=== PATIENT | female | born 1985 | race Asian ===

== ENCOUNTER 2017-03-25 05:01 | Inpatient (IN) | payer OTHER ==
[~2017-03-25] VITALS: Ht 167.6 cm; Wt 84.4 kg
[2017-03-25] MEDS ORDERED: AMPICILLIN 2,000 MG in NACL 0.9% MINI-BAG PLUS 100 ML IV SCH (05:40)
[2017-03-25] MEDS ORDERED: CITRIC ACID/SODIUM CITRATE 30 ML UDC PO ONE (05:40)
[2017-03-25 05:50] VITALS: BP 122/82
[2017-03-25] MEDS: LACTATED RINGERS 1,000 ML IV SCH ×2 (05:58→06:58)
[2017-03-25 06:35] LABS: BASOPHILS # (AUTO) 0.1 K/uL (0.00-0.22); BASOPHILS % (AUTO) 1.3 % (0.0-2.0); EOSINOPHILS # (AUTO) 0.2 K/uL (0-0.4); EOSINOPHILS % (AUTO) 2.6 % (0.0-4.0); HEMATOCRIT 39.7 % (36-48); HEMOGLOBIN 13.5 g/dL (12.0-16.0); LYMPHOCYTES # (AUTO) 1.6 K/uL (2.5-16.5); MEAN CORPUSCULAR HEMOGLOBIN 31 pg (27-31); MEAN CORPUSCULAR HGB CONC 34 g/dL (33-37); MEAN CORPUSCULAR VOLUME 90 fL (80-94); MONOCYTES # (AUTO) 0.6 K/uL (0.8-1.0); MONOCYTES % (AUTO) 8.7 % (1.7-9.3); NEUTROPHILS # (AUTO) 4.7 K/uL (1.8-7.7); NEUTROPHILS % (AUTO) 65.4 % (42.2-75.2); PLATELET COUNT (AUTO) 150 K/uL (140-450); RED BLOOD CELL COUNT(AUTO) 4.42 MIL/uL (4.20-5.40); RED CELL DISTRIBUTION WIDTH 12.6 % (11.6-13.7); WHITE BLOOD COUNT (AUTO) 7.2 K/uL (4.8-10.8)
[2017-03-25] MEDS ORDERED: ceFAZolin 1,000 MG VIAL ONE (07:01)
[2017-03-25] MEDS ORDERED: CITRIC ACID/SODIUM CITRATE 30 ML UDC ONE (07:01)
[2017-03-25 07:28] LABS: ANION GAP 16.3 (8-16); CARBON DIOXIDE 23.3 mmol/L (21-32); CREATININE 0.5 mg/dL (0.6-1.3); POTASSIUM 3.6 mmol/L (3.5-5.1)
[2017-03-25] MEDS ORDERED: OXYTOCIN 10 UNITS/ML VIAL ONE ×2 (07:32→19:02)
[2017-03-25] MEDS ORDERED: ONDANSETRON 4 MG/2 ML VIAL IVP ONE (07:33)
[2017-03-25] MEDS ORDERED: BUPIVACAINE-MPF 0.75% 10 ML VIAL INJ ONE (07:33)
[2017-03-25] MEDS ORDERED: TRIAMCINOLONE 40 MG/ML 5ML VIAL ONE (07:33)
[2017-03-25 07:34] LABS: ALBUMIN 2.4 g/dL (3.4-5.0); TOTAL BILIRUBIN 0.5 mg/dL (0.0-1.0)
[2017-03-25 07:37] LABS: APPEARANCE,URINE HAZY (CLEAR); BILIRUBIN,URINE NEGATIVE (NEGATIVE); BLOOD, URINE NEGATIVE (NEGATIVE); LEUKOCYTE ESTERASE ,URINE NEGATIVE (NEGATIVE); NITRITE, URINE NEGATIVE (NEGATIVE); UGLUCOSE NEGATIVE (NEGATIVE)
[2017-03-25] MEDS ORDERED: diphenhydrAMINE 50 MG/ML VIAL ONE (07:41)
[2017-03-25] MEDS ORDERED: MORPHINE PRES FREE 10 MG/10 ML AMP IV ONE (07:47)
[2017-03-25 07:56] LABS: COLOR,URINE YELLOW (YELLOW)
[2017-03-25] MEDS ORDERED: OXYTOCIN 20 UNITS in LACTATED RINGERS 1,000 ML IV SCH (07:56)
[2017-03-25] MEDS ORDERED: KETOROLAC 30 MG/ML VIAL IVP PRN (08:00)
[2017-03-25] MEDS ORDERED: ONDANSETRON 4 MG/2 ML VIAL IVP PRN (08:00)
[2017-03-25] MEDS ORDERED: NALOXONE 0.4 MG/ML VIAL IVP PRN ×2 (08:00)
[2017-03-25] MEDS ORDERED: diphenhydrAMINE 50 MG/ML VIAL IVP PRN (08:00)
[2017-03-25] MEDS ORDERED: OXYTOCIN 10 UNITS in LACTATED RINGERS 1,000 ML IV SCH (08:12)
[2017-03-25] MEDS ORDERED: oxyCODONE/APAP 5/325 MG 1 TAB TAB PO PRN ×3 (08:15)
[2017-03-25] MEDS ORDERED: MEASLES, MUMPS, AND RUBELLA 1 VIAL SQVAC PRN (08:15)
[2017-03-25] MEDS ORDERED: TEMAZEPAM 15 MG CAP PO PRN ×2 (08:15)
[2017-03-25] MEDS ORDERED: TRIMETHOBENZAMIDE 200 MG/2 ML SYR IM PRN (08:15)
[2017-03-25] MEDS ORDERED: METHYLERGONOVINE 0.2 MG/ML AMP IM PRN (08:15)
[2017-03-25] MEDS ORDERED: SIMETHICONE 80 MG TAB.CHEW PO PRN ×2 (08:15)
[2017-03-25] MEDS: OXYTOCIN 20 UNITS/LR PREMIX 1,000 ML IV ONE ×2 (08:37→09:00)
[2017-03-25] MEDS ORDERED: SODIUM PHOSPHATE 118 ML ENEM RC SCH (09:00)
--- NOTE | 2017-03-25 10:29 | NUR ---
PATIENT HAS BEEN SCREENED AND CATEGORIZED LOW NUTRITION RISK. PATIENT WILL BE SEEN WITHIN 7 DAYS OF ADMISSION. 03/31/[address]
[2017-03-25] MEDS: OXYTOCIN 20 UNITS in LACTATED RINGERS 1,000 ML IV SCH (19:00)
[2017-03-25] MEDS ORDERED: DOCUSATE SOD/SENNA 50/8.6 MG 1 TAB PO SCH (21:00)
[2017-03-25] MEDS: DOCUSATE SOD/SENNA 50/8.6 MG 1 TAB PO SCH (21:00)
[2017-03-26] MEDS: OXYTOCIN 20 UNITS in LACTATED RINGERS 1,000 ML IV SCH (02:23)
[2017-03-26] MEDS: HYDROcodone/APAP 5/325 MG 1 TAB TAB PO PRN ×3 (05:12→21:47)
[2017-03-26 07:42] LABS: BASOPHILS # (AUTO) 0.1 K/uL (0.00-0.22); EOSINOPHILS # (AUTO) 0.1 K/uL (0-0.4); EOSINOPHILS % (AUTO) 1.6 % (0.0-4.0); HEMATOCRIT 35.7 % (36-48); HEMOGLOBIN 11.8 g/dL (12.0-16.0); LYMPHOCYTES % (AUTO) 13.3 % (20.5-51.1); MEAN CORPUSCULAR HEMOGLOBIN 30 pg (27-31); MEAN CORPUSCULAR HGB CONC 33 g/dL (33-37); MEAN CORPUSCULAR VOLUME 91 fL (80-94); MONOCYTES # (AUTO) 0.6 K/uL (0.8-1.0); MONOCYTES % (AUTO) 8.4 % (1.7-9.3); NEUTROPHILS # (AUTO) 5.4 K/uL (1.8-7.7); NEUTROPHILS % (AUTO) 75.7 % (42.2-75.2); PLATELET COUNT (AUTO) 142 K/uL (140-450); RED BLOOD CELL COUNT(AUTO) 3.93 MIL/uL (4.20-5.40); RED CELL DISTRIBUTION WIDTH 12.9 % (11.6-13.7); WHITE BLOOD COUNT (AUTO) 7.2 K/uL (4.8-10.8)
[2017-03-26] MEDS: IBUPROFEN 800 MG TAB PO PRN (09:24)
[2017-03-26] MEDS: DOCUSATE SOD/SENNA 50/8.6 MG 1 TAB PO SCH (21:47)
[2017-03-27] MEDS ORDERED: INFLUENZA VIRUS VACCINE QUAD 0.5 ML SYR IMVAC SCH (09:55)
[2017-03-27] MEDS: IBUPROFEN 800 MG TAB PO PRN (19:04)
== END 2017-03-28 12:30 | disposition home or self-care (01) | DRG 540 ==
LOC: MLD 05:01 → MFCC 09:10
PROVIDERS: ADMIT Obstetrics & Gynecology; ATTEND Obstetrics & Gynecology
PROC: 10D00Z1 Extraction of Products of Conception, Low, Open Approach (ICD-10-PCS; principal; 2017-03-25 07:30)
PROC: 3E0234Z Introduction of Serum, Toxoid and Vaccine into Muscle, Percutaneous Approach (ICD-10-PCS; 2017-03-27)
DX: O34.211 Maternal care for low transverse scar from previous cesarean delivery (principal); O99.824 Streptococcus B carrier state complicating childbirth; Z37.0 Single live birth; Z3A.39 39 weeks gestation of pregnancy; Z23 Encounter for immunization
CPT/HCPCS: 36415; 51702; 80053; 81003; 85025; 86592; 86886; 86900; 86901; 87081; 90658; 90715; J0690; J1200; J2270; J2405; J2590; J3301; J3490; J7060; J7120

== ENCOUNTER 2023-07-27 16:10 | Emergency (ER) | payer OTHER ==
[~2023-07-27] VITALS: Ht 167.6 cm; Wt 74.4 kg
[2023-07-27 16:27] VITALS: BP 106/70; PULSE 57; RESP 17; TEMP 97.3; O2SAT 99
[2023-07-27] MEDS ORDERED: DICYCLOMINE HCL LIQUID 10 MG/5 ML UDC ONE (16:58)
[2023-07-27] MEDS ORDERED: ALUMINUM HYD/MAG/SIMETHICONE 30 ML UDC ONE (16:58)
[2023-07-27 17:11] LABS: APPEARANCE,URINE CLEAR (CLEAR); BILIRUBIN,URINE NEGATIVE (NEGATIVE); BLOOD, URINE NEGATIVE (NEGATIVE); COLOR,URINE YELLOW (YELLOW); LEUKOCYTE ESTERASE ,URINE 1+ (NEGATIVE); NITRITE, URINE NEGATIVE (NEGATIVE); PROTEIN,URINE NEGATIVE (NEGATIVE); UGLUCOSE NEGATIVE (NEGATIVE); UROBILINOGEN,URINE 0.2 EU/dL (0.2 - 1)
[2023-07-27 17:19] LABS: ANION GAP 8.1 (8-16); CALCIUM 8.5 mg/dL (8.5-10.1); CARBON DIOXIDE 28.5 mmol/L (21-32); CREATININE 0.5 mg/dL (0.6-1.3); POTASSIUM 3.6 mmol/L (3.5-5.1)
[2023-07-27 17:37] LABS: RBC,URINE 0-5 /HPF (0-5)
[2023-07-27 17:38] LABS: BACTERIA,URINE FEW /HPF (None Seen); MUCUS,URINE None Seen /LPF (None Seen); SQUAMOUS EPITHELIAL CELL,UR 4-10 (MOD) /LPF (0-3 (FEW)); TRICHOMONAS,URINE None Seen /HPF (None Seen); WHITE BLOOD CELL CASTS,URINE None Seen /LPF (None Seen); YEAST,URINE None Seen /HPF (None Seen)
[2023-07-27] MEDS: KETOROLAC 30 MG/ML VIAL IM ONE (17:38)
[2023-07-27] MEDS: ONDANSETRON 4 MG ODT PO ONE (17:39)
[2023-07-27] MEDS: DICYCLOMINE HCL LIQUID 20 MG, ALUMINUM HYD/MAG/SIMETHICONE 30 ML, LIDOCAINE VISCOUS 2% ... PO ONE (17:40)
[2023-07-27] MEDS ORDERED: ACET-10509 PO ×2 (18:39→23:17)
[2023-07-27] MEDS ORDERED: ONDA-188 SL ×2 (18:39→23:17)
[2023-07-27 18:47] VITALS: BP 106/70; PULSE 57; RESP 17; TEMP 97.3; O2SAT 99
[2023-07-27] MEDS ORDERED: MAG10ORA PO (23:17)
[2023-07-27] MEDS ORDERED: BEN10 PO (23:17)
== END 2023-07-27 18:46 | disposition home or self-care (01) ==
LOC: MED 16:10
DX: K29.70 Gastritis, unspecified, without bleeding (principal); E87.1 Hypo-osmolality and hyponatremia; Z79.899 Other long term (current) drug therapy
CPT/HCPCS: 36415; 80048; 81001; 81025; 83690; 87086; 96372; 99283; J1885; Q0162

== ENCOUNTER 2023-07-27 22:44 | Emergency (ER) | payer OTHER ==
[~2023-07-27] VITALS: Ht 167.6 cm; Wt 64.0 kg
[~2023-07-27 22:44] MED LIST: ACET-10509 PO; ONDA-188 SL
[2023-07-27 22:52] VITALS: BP 118/71; PULSE 70; RESP 18; TEMP 98.7; O2SAT 99
[2023-07-27 23:02] VITALS: O2SAT 98
[2023-07-27] MEDS ORDERED: ACET-10509 PO (23:17)
[2023-07-27] MEDS ORDERED: BEN10 PO (23:17)
[2023-07-27] MEDS ORDERED: ONDA-188 SL (23:17)
[2023-07-27] MEDS ORDERED: MAG10ORA PO (23:17)
[2023-07-27] MEDS: ALUMINUM HYD/MAG/SIMETHICONE 30 ML UDC PO ONE (23:19)
[2023-07-27] MEDS: ONDANSETRON 4 MG ODT PO ONE (23:20)
[2023-07-27] MEDS: DICYCLOMINE 20 MG/2 ML VIAL IM ONE (23:22)
[2023-07-27 23:38] VITALS: BP 118/72; PULSE 68; RESP 16; TEMP 98.3; O2SAT 99
== END 2023-07-27 23:37 | disposition home or self-care (01) ==
LOC: MED 22:44
DX: R11.2 Nausea with vomiting, unspecified (principal); R10.10 Upper abdominal pain, unspecified; Z79.899 Other long term (current) drug therapy
CPT/HCPCS: 96372; 99283; J0500; Q0162